=== PATIENT | female | born 1985 | race African-American/Black ===

== ENCOUNTER 2018-08-05 21:42 | Emergency (ER) | payer SELFPAY ==
[2018-08-05] MEDS ORDERED: Ketorolac Tromethamine 60 MG/2 ML VIAL ONE (22:07)
[2018-08-05] MEDS ORDERED: diphenhydrAMINE 25 MG CAP ONE (22:11)
[2018-08-05] MEDS ORDERED: Metoclopramide HCl 10 MG TAB ONE (22:11)
== END 2018-08-05 22:37 | disposition home or self-care (01) ==
LOC: NAV ERS 21:42
DX: R51 Headache (principal); F17.210 Nicotine dependence, cigarettes, uncomplicated
CPT/HCPCS: 96372; J1885

== ENCOUNTER 2019-01-24 19:24 | Emergency (ER) | payer BC, SELFPAY ==
--- NOTE | 2019-01-24 19:53 | RAD ---
THREE VIEWS OF THE LEFT FOURTH FINGER 01/24/19 COMPARISON: None. HISTORY: Injury, trauma, pain. FINDINGS: There is soft tissue swelling at the level of the fourth proximal interphalangeal joint. No associate d fracture or evidence of dislocation. IMPRESSION: Soft tissue swelling with no displaced fracture or dislocation. If symptoms persists, followup in 7-1 0 days suggested. POS: [facility]
== END 2019-01-24 20:05 | disposition home or self-care (01) ==
LOC: NAV ERS 19:24
DX: S63.615A Unspecified sprain of left ring finger, initial encounter (principal); F17.210 Nicotine dependence, cigarettes, uncomplicated; W51.XXXA Accidental striking against or bumped into by another person, initial encounter